=== PATIENT | female | born 1990 | race Caucasian/White ===

== ENCOUNTER 2019-10-14 21:53 | Emergency (ER) | payer OTHER ==
[2019-10-14] MEDS ORDERED: Lactated Ringers 1,000 ML IV ONE (23:43)
[2019-10-14] MEDS ORDERED: Ondansetron 4 MG/2 ML SDV IVPUSH ONE (23:48)
--- NOTE | 2019-10-14 23:51 | EDM.PDOC ---
ED HPI GENERAL MEDICAL PROBLEM - General Chief Complaint: General Stated Complaint: DIZZY SOB DEHYDRATION Time Seen by Provider: 10/14/19 23:41 Source of Information: Reports: Patient History Limitations: Reports: No Limitations - History of Present Illness INITIAL COMMENTS - FREE TEXT/NARRATIVE: Ms. Conway is a very pleasant 29-year-old woman who now presents the ED stating that she has been "feeling a little dehydrated" since noon, and that her "arms feel like Jell-O". She states that she has had a mild headache yesterday and today, and that she had nausea earlier, but no vomiting or watery diarrhea. She reports that she has been hiking for the past 7 days, while on vacation in this area. The patient did not take any [id number] or home remedies prior to coming t o the ED. Here in the ED, the patient is found to be hemodynamically stable, afebrile, saturating 100% on room air. Other than the above symptoms, the patient denies recent fever, chills, sore throat, ear pain, nasal or sinus congestion, cough, dyspnea, chest pain, palpitations, vomiting, constipation, diarrhea, abdominal pain, urinary symptoms, recent weight gain or weight loss, recent bloody bowel movements or black bowel movements, recent joint aches, or rashes. The patient does not have a PCP. Headache Pain Score (Numeric/FACES): 4 - Related Data Allergies Allergy/AdvReac Type Severity Reaction Status Date / Time No Known Allergies Allergy Verified 10/14/19 22:12 Past Medical History HEENT History: Reports: Impaired Vision Neurological History: Reports: Migraines - Past Surgical History HEENT Surgical History: Reports: Oral Surgery (wisdom teeth extraction), Tonsillectomy Social & Family History - Tobacco Use Smoking Status *Q: Never Smoker Second Hand Smoke Exposure: No - Caffeine Use Caffeine Use: Reports: Coffee - Alcohol Use Alcohol Use History: Yes Alcohol Use Frequency: Socially - Recreational Drug Use Recreational Drug Use: No - Living Situation & Occupation Living situation: Reports: Single, with Family Occupation: Employed (Advertising) ED ROS GENERAL - Review of Systems Review Of Systems: Comprehensive ROS is negative, except as noted in HPI. ED EXAM, GENERAL - Physical Exam Exam: See Below Exam Limited By: No Limitations General Appearance: Alert, No Apparent Distress, Thin Eye Exam: Bilateral Eye: EOMI, Normal Inspection Ears: Normal External Exam, Hearing Grossly Normal Nose: Normal Inspection Throat/Mouth: Normal Inspection, Normal Lips, Normal Voice, No Airway Compromise Head: Atraumatic, Normocephalic Neck: Normal Inspection, Full Range of Motion Respiratory/Chest: No Respiratory Distress, Lungs Clear, Normal Breath Sounds, No Accessory Muscle Use Cardiovascular: Normal Peripheral Pulses, Regular Rate, Rhythm, No Edema, No Gallop, No JVD, No Murmur, No Rub Peripheral Pulses: 3+: Radial (L), Radial (R) GI/Abdominal: Normal Bowel Sounds, Soft, No Organomegaly, No Distention, No Abnormal Bruit, No Mass, Tender (very mild, generalized, non-focal) (Female) Exam: Deferred Rectal (Female) Exam: Deferred Back Exam: Normal Inspection, Full Range of Motion, NT Extremities: Normal Inspection, Normal Range of Motion, No Pedal Edema, Normal Capillary Refill Neurological: Alert, Oriented, Normal Cognition, No Motor/Sensory Deficits Psychiatric: Normal Affect Skin Exam: Warm, Dry, Intact, Normal Color, No Rash Course - Vital Signs Last Recorded V/S: Last Vital Signs Temp 36.4 C 10/15/19 01:21 Pulse 76 10/14/19 23:35 Resp 18 10/15/19 01:21 BP 107/66 10/14/19 23:35 Pulse Ox 100 10/15/19 01:21 Orthostatic Blood Pressure [ 107/79 Standing] Orthostatic Blood Pressure [ 110/75 Sitting] Orthostatic Blood Pressure [ 105/66 Supine] - Orders/Labs/Meds Labs: Laboratory Tests 10/14/19 10/14/19 Range/Units 23:45 23:45 Sodium 130 L (136-145) mEq/L Potassium 3.8 (3.5-5.1) mEq/L Chloride 97 L (98-107) mEq/L Carbon Dioxide 24 (21-32) mEq/L Anion Gap 12.8 (5-15) BUN 8 (7-18) mg/dL Creatinine 0.7 (0.55-1.02) mg/dL Est Cr Clr Drug Dosing 102.81 mL/min Estimated GFR (MDRD) > 60 (>60) mL/min BUN/Creatinine Ratio 11.4 L (14-18) Glucose 105 (74-106) mg/dL Calcium 8.7 (8.5-10.1) mg/dL Magnesium 1.9 (1.8-2.4) mg/dl Total Bilirubin 0.6 (0.2-1.0) mg/dL AST 18 (15-37) U/L ALT 15 (14-59) U/L Alkaline Phosphatase 36 L (46-116) U/L Total Protein 6.6 (6.4-8.2) g/dl Albumin 3.7 (3.4-5.0) g/dl Globulin 2.9 gm/dL Albumin/Globulin Ratio 1.3 (1-2) Meds: Medications Discontinued Medications Generic Name Dose Route Start Last Admin Trade Name Sheldonq PRN Reason Stop Dose Admin Lactated Ringer's 1,000 mls @ 999 mls/hr 10/14/19 23:43 10/15/19 00:28 Ringers, Lactated IV 10/15/19 00:43 999 mls/hr .BOLUS ONE Administration Ondansetron HCl 4 mg 10/14/19 23:48 10/15/19 00:28 Zofran IVPUSH 10/14/19 23:49 4 mg ONETIME ONE Administration - Re-Assessments/Exams Free Text/Narrative Re-Assessment/Exam: 10/14/19 23:49 As above, the patient feels dehydrated and has a mild headache with some nausea after hiking for the past 7 days, including this morning. She thinks that she simply overdid it. I have ordered orthostatics and some blood work to check her electrolyte status. In the meantime, the patient will be given IV fluid and IV Zofran. 10/15/19 00:41 The patient is not orthostatic. Her CMP is remarkable for a sodium mildly depressed at 130, with the remainder of her CMP being unremarkable. Her magnesium level is within normal limits at 1.9. 10/15/19 00:58 The patient has received about 300 mL of the IV fluid ordered, however, she states that she feels much better. Since she is not orthostatic, I will let her go home. Departure - Departure Time of Disposition: 00:59 Disposition: Home, Self-Care 01 Condition: Good Clinical Impression: Overexertion - Discharge Information *PRESCRIPTION DRUG MONITORING PROGRAM REVIEWED*: Not Applicable *COPY OF PRESCRIPTION DRUG MONITORING REPORT IN PATIENT DOMINIQUE: Not Applicable Referrals: PCP,Not In Area [Primary Care Provider] - Forms: ED Department Discharge Additional Instructions: You were seen in the emergency room for feeling dehydrated and fatigue, after hiking for the past 7 days. Work-up in the ER included blood work and positional blood pressure checks. Your entire work-up was unremarkable. You are not dehydrated, and you are not intravascularly depleted. You were given IV fluid and the antinausea medicine Zofran in the ER. Going forward, we recommend that you stay adequately hydrated. Gatorade or Powerade are best. Make sure that you get plenty of rest. If any other problems, please do not hesitate to return to the ER. Sepsis Event Note (ED) - Evaluation Sepsis Screening Result: No Definite Risk
== END 2019-10-15 01:15 | disposition home or self-care (01) ==
LOC: JD.ED 21:53
DX: T73.3XXA Exhaustion due to excessive exertion, initial encounter (principal); E86.0 Dehydration; R51 Headache
CPT/HCPCS: 36415; 80053; 83735; 96361; 96374; 99284; J2405; J7120; 99283